=== PATIENT | female | born 1995 | race Asian ===

== ENCOUNTER 2024-11-04 06:33 | Emergency (ER) | payer BC ==
[~2024-11-04] VITALS: Ht 172.7 cm; Wt 57.2 kg
[2024-11-04 07:17] LABS: APPEARANCE,URINE CLEAR (CLEAR); BILIRUBIN,URINE NEGATIVE (NEGATIVE); BLOOD, URINE 3+ Ery/uL (NEGATIVE); COLOR,URINE YELLOW (YELLOW); KETONES,URINE TRACE mg/dL (NEGATIVE); LEUKOCYTE ESTERASE ,URINE 1+ (NEGATIVE); NITRITE, URINE NEGATIVE (NEGATIVE); PROTEIN,URINE TRACE mg/dl (NEGATIVE); UGLUCOSE NEGATIVE (NEGATIVE)
[2024-11-04] MEDS: IV NS 0.9% 1,000 ML BAG IV ONE (07:19)
[2024-11-04] MEDS ORDERED: ACETAMINOPHEN ES 500 MG TABLET ONE (07:19)
[2024-11-04] MEDS ORDERED: ONDANSETRON HCL/PF 4 MG/2 ML VIAL ONE (07:19)
[2024-11-04] MEDS ORDERED: KETOROLAC TROMETHAMINE 15 MG/ML VIAL ONE (07:19)
[2024-11-04] MEDS: ONDANSETRON HCL/PF 4 MG/2 ML VIAL IVP ONE (07:23)
[2024-11-04] MEDS: ACETAMINOPHEN ES 500 MG TABLET PO ONE (07:23)
[2024-11-04 07:28] LABS: BASOPHILS % (AUTO) 0.2 % (0.0-2.0); EOSINOPHILS # (AUTO) 0.1 K/uL (0.0-0.7); EOSINOPHILS % (AUTO) 0.6 % (0.0-6.0); HEMATOCRIT 38 % (33-45); HEMOGLOBIN 12.7 g/dL (11.5-14.8); LYMPHOCYTES # (AUTO) 1.1 K/uL (0.8-4.8); LYMPHOCYTES % (AUTO) 10.8 % (20.0-44.0); MEAN CORPUSCULAR HEMOGLOBIN 32 PG (26.0-33.0); MEAN CORPUSCULAR HGB CONC 33 g/dl (31.0-36.0); MEAN CORPUSCULAR VOLUME 97 fL (82-100); MONOCYTES # (AUTO) 0.4 K/uL (0.1-1.30); MONOCYTES % (AUTO) 3.8 % (2.0-12.0); NEUTROPHILS # (AUTO) 8.7 K/uL (1.8-8.9); NEUTROPHILS % (AUTO) 84.6 % (43.0-81.0); PLATELET COUNT (AUTO) 212 K/uL (150-450); RED BLOOD CELL COUNT(AUTO) 3.96 MIL/uL (4.0-5.2); RED CELL DISTRIBUTION WIDTH 13.4 % (11.5-15.0); WHITE BLOOD COUNT (AUTO) 10.3 K/uL (4.3-11.0)
[2024-11-04 07:28] LABS: PREGNANCY TEST URINE QUAL NEGATIVE (NEGATIVE)
[2024-11-04 07:29] LABS: ADD URINE CULTURE YES; BACTERIA,URINE Rare /HPF (None Seen); SQUAMOUS EPITHELIAL CELL,UR 0-2 /HPF (None Seen)
[2024-11-04] MEDS: KETOROLAC TROMETHAMINE 15 MG/ML VIAL IV ONE (07:30)
[2024-11-04 07:41] LABS: ALBUMIN 3.9 g/dL (3.4-5.0); BILIRUBIN,DIRECT 0.1 mg/dL (0.0-0.2); BILIRUBIN,TOTAL 0.3 mg/dL (0.2-1.0); CALCIUM, SERUM 8.8 mg/dL (8.5-10.1); CREATININE 0.8 mg/dL (0.6-1.3); POTASSIUM 3.7 mmol/L (3.5-5.1); TOTAL PROTEIN, SERUM 7.2 g/dL (6.4-8.2)
[2024-11-04] MEDS ORDERED: ONDA4TAB5 PO (08:22)
[2024-11-04] MEDS ORDERED: IBUP-1955 PO (08:22)
[2024-11-04] MEDS ORDERED: CEPH-570 PO (08:33)
[2024-11-04 08:54] VITALS: BP 131/75; TEMP 98; O2SAT 99
== END 2024-11-04 08:54 | disposition home or self-care (01) ==
LOC: ER 06:46
DX: N39.0 Urinary tract infection, site not specified (principal); N94.6 Dysmenorrhea, unspecified; R11.0 Nausea
CPT/HCPCS: 99285; 76856; 96374; 96361; 96375; 76770; 85025; 80048; 87086; 83690; 80076; 84703; 81001; 36415; J1885; J2405; J7030